=== PATIENT | female | born 1995 | race Caucasian/White ===

== ENCOUNTER 2023-05-29 13:12 | Emergency (ER) | payer SELFPAY ==
[~2023-05-29] VITALS: Ht 154.9 cm; Wt 70.3 kg
[~2023-05-29 13:12] MED LIST: ADVAIR 100/501 E1 INH; AMOXICILLIN500 MG PO; CETIRIZINE HCL10 MG PO; CLARITIN10 MG PO; DOXYCYCLINE MO100 MG PO; MEDROL DOSEPAK4 MG PO; NORCO 325 MG-51 TAB PO; PEN-VK500 MG PO; PEPCID20 MG PO; PHENERGAN6.25 MG/5 PO; PROAIR HFA0.09 MG/AC INH; PROTONIX20 MG PO; SINGULAIR10 MG PO; SPRINTEC 35 MCG1 TA1 PO; [UNRECOGNIZED DRUG - OTHER] PO
[2023-05-29 13:48] VITALS: BP 129/82
== END 2023-05-29 16:17 | disposition home or self-care (01) ==
LOC: ED 13:12
DX: S00.35XA Superficial foreign body of nose, initial encounter (principal); Z88.8 Allergy status to other drugs, medicaments and biological substances; Z98.890 Other specified postprocedural states; Z90.89 Acquired absence of other organs; W22.8XXA Striking against or struck by other objects, initial encounter; Y93.89 Activity, other specified; Y92.89 Other specified places as the place of occurrence of the external cause; Y99.8 Other external cause status

== ENCOUNTER 2023-11-03 07:33 | Emergency (ER) | payer OTHER ==
[~2023-11-03] VITALS: Ht 149.8 cm; Wt 68.9 kg
[2023-11-03 07:50] VITALS: BP 121/69
[2023-11-03] MEDS ORDERED: AMOX-CLAV 875-1 EACH PO (08:25)
== END 2023-11-03 08:37 | disposition home or self-care (01) ==
LOC: ED 07:33
DX: L03.213 Periorbital cellulitis (principal); Z88.8 Allergy status to other drugs, medicaments and biological substances; Z90.89 Acquired absence of other organs; Z98.890 Other specified postprocedural states